=== PATIENT | female | born 1950 | race Caucasian/White ===

== ENCOUNTER → 2016-03-28 14:35 | Outpatient (CLI) | payer MEDICARE ==
[2015-10-02 12:24] VITALS: BMI 23.2
[~2016-03-28 14:35] MED LIST: AGGRENOX 200/251 CAP PO; AMBIEN10 MG PO; ESGIC TABLET1 TAB PO; HYDROCODONE-APA1 TAB PO; K-DUR20 MEQ PO; KEPPRA750 MG PO; LIPITOR40 MG PO; TEMAZEPAM30 MG PO; VALIUM5 MG PO; XANAX1 MG PO; ZANTAC150 MG PO; ZOFRAN4 MG PO; [UNRECOGNIZED DRUG - OTHER]
== END | disposition home or self-care (01) ==
LOC: D.MRI 14:00
DX: R55 Syncope and collapse (principal); R41.0 Disorientation, unspecified

== ENCOUNTER 2017-09-15 08:00 | Outpatient (CLI) | payer OTHER ==
[2015-10-02 12:24] VITALS: BMI 23.2
== END 2017-09-15 11:18 | disposition home or self-care (01) ==
LOC: D.MAMMO 08:00
DX: Z12.31 Encounter for screening mammogram for malignant neoplasm of breast (principal)